=== PATIENT | female | born 1980 | race Caucasian/White ===

== ENCOUNTER 2016-09-25 02:54 | Emergency (ER) | payer BC ==
[~2016-09-25 02:54] MED LIST: NEUR300 PO; NORCO1 TA2 PO; NORV5 PO
== END 2016-09-25 03:15 | disposition home or self-care (01) ==
LOC: ER 02:54
DX: M25.561 Pain in right knee (principal); G89.29 Other chronic pain; I10 Essential (primary) hypertension; Z88.5 Allergy status to narcotic agent; Z88.8 Allergy status to other drugs, medicaments and biological substances; Z79.899 Other long term (current) drug therapy
CPT/HCPCS: 73560-RT; 96372; 99283; J1885

== ENCOUNTER 2017-01-19 17:56 | Emergency (ER) | payer BC | END 2017-01-19 19:12 | disposition home or self-care (01) | LOC: ER 17:56 | DX: M25.552 Pain in left hip (principal); I10 Essential (primary) hypertension; Z90.49 Acquired absence of other specified parts of digestive tract; Z90.89 Acquired absence of other organs; Z88.5 Allergy status to narcotic agent; Z79.899 Other long term (current) drug therapy | CPT/HCPCS: 96372; 99283; J1885 ==